=== PATIENT | female | born 1970 | race African-American/Black ===

== ENCOUNTER 2016-12-13 18:17 | Emergency (ER) | payer OTHER ==
[2016-12-13 18:24] VITALS: TEMP 98; BMI 38.0
[2016-12-13 20:09] LABS: URINE APPEARANCE CLEAR; URINE BILIRUBIN NEGATIVE (NEGATIVE); URINE BLOOD NEGATIVE (NEGATIVE); URINE COLOR STRAW; URINE GLUCOSE (UA) NEGATIVE (NEGATIVE); URINE KETONE NEGATIVE (NEGATIVE); URINE NITRITE NEGATIVE (NEGATIVE); URINE PROTEIN NEGATIVE (NEGATIVE); URINE UROBILINOGEN NEGATIVE E.U./dl (0.2-1.0)
[2016-12-13 20:12] LABS: URINE LEUK ESTERASE TRACE (NEGATIVE)
[2016-12-13 20:14] LABS: URINE MUCUS RARE; URINE RBC 1 /hpf (0-3); URINE WBC 4 /hpf (3-5)
[2016-12-13 20:25] LABS: BASOPHIL 0.7 % (0-2.0); EOSINOPHIL 3.1 % (0-4.5); MCH 23.3 pg (25.7-33.7); MCHC 32.5 g/dl (32.0-36.0); MEAN CELL VOLUME 71.7 fl (80-96); MEAN PLT VOLUME 7.4 fl (7.5-11.1); NEUTROPHILS 65.4 % (42.8-82.8); PLATELET COUNT 337 K/MM3 (134-434); RDW 16.5 % (11.6-15.6); WHITE BLOOD COUNT 8.2 K/mm3 (4.0-10.0)
[2016-12-13 20:41] LABS: INR 1.02 (0.82-1.09); PROTHROMBIN TIME (PATIENT) 11.2 SEC (9.98-11.88)
[2016-12-13 20:57] LABS: ALBUMIN 3.7 g/dl (3.4-5.0); ANION GAP 9 (8-16); BILIRUBIN,TOTAL 0.3 mg/dL (0.2-1.0); CALCIUM 8.7 mg/dL (8.5-10.1); CO2 25 mmol/L (21-32); CREATININE 0.9 mg/dL (0.55-1.02); GLUCOSE,RANDOM 77 mg/dL (74-106); SGOT/AST 13 U/L (15-37); SGPT/ALT 19 U/L (12-78); TOT PROT 6.9 g/dl (6.4-8.2)
[2016-12-13 20:59] LABS: ALK PHOS 75 U/L (45-117); TROPONIN I < 0.02 ng/ml (0.00-0.05)
--- NOTE | 2016-12-13 21:22 | PDOC ---
History of Present Illness - General History Source: Patient Exam Limitations: No Limitations - History of Present Illness Initial Comments: 12/13/16 21:35 The patient is a 46 year old female with a significant past medical history of hypertension, presenting to the Emergency Department with palpitations. She describes a fluttering feeling in her heart that feels like an extended heartbeat. She reports that this sensation has been intermittent over the past few weeks, but has recently become more consistent. She also reports minimal chest tightness or discomfort, but denies chest pain. She denies any alleviating or exacerbating factors. The patient denies shortness of breath, or diaphoresis. Patient denies fever, chills, and cough. Patient denies nausea, vomiting, and diarrhea. Patient denies back pain, or neck pain. Patient denies recent change in diet or lifestyle. Familial Hx: Mother CHF, diabetes in family PCP: Dr. Latosha Palacios <Prerna Lott - Last Filed: 12/13/16 22:02> <Gisell Waite - Last Filed: 12/14/16 20:15> - General Chief Complaint: Palpitations Stated Complaint: PALPITATIONS Time Seen by Provider: 12/13/16 19:49 Past History <Prerna Lott - Last Filed: 12/13/16 22:02> - Past Medical History HTN: Yes Suicide Attempt (Hx): No - Immunization History Immunization Up to Date: No - Psycho/Social/Smoking Cessation Hx Anxiety: No Suicidal Ideation: No Smoking History: Never smoked Have you smoked in the past 12 months: No Information on smoking cessation initiated: No Hx Alcohol Use: No Drug/Substance Use Hx: No Substance Use Type: None <Gisell Waite - Last Filed: 12/14/16 20:15> - Past Medical History Allergies/Adverse Reactions: Allergies Allergy/AdvReac Type Severity Reaction Status Date / Time No Known Allergies Allergy Verified 05/08/15 20:33 Home Medications: Ambulatory Orders Amlodipine Besylate [Norvasc -] 10 mg PO DAILY 05/08/15 Review of Systems - Review of Systems Able to Perform ROS?: Yes Comments:: 12/13/16 21:36 GENERAL/CONSTITUTIONAL: No fever or chills. No weakness. HEAD, EYES, EARS, NOSE AND THROAT: No change in vision. No ear pain or discharge. No sore throat. CARDIOVASCULAR: + palpitations, + chest tightness and discomfort. No chest pain or shortness of breath. RESPIRATORY: No cough, wheezing, or hemoptysis. GASTROINTESTINAL: No nausea, vomiting, diarrhea or constipation. GENITOURINARY: No dysuria, frequency, or change in urination. MUSCULOSKELETAL: No joint or muscle swelling or pain. No neck or back pain. SKIN: No rash NEUROLOGIC: No headache, vertigo, loss of consciousness, or change in strength/ sensation. ENDOCRINE: No increased thirst. No abnormal weight change. HEMATOLOGIC/LYMPHATIC: No anemia, easy bleeding, or history of blood clots. ALLERGIC/IMMUNOLOGIC: No hives or skin allergy. <Prerna Lott - Last Filed: 12/13/16 22:02> *Physical Exam - Vital Signs Last Vital Signs Temp Pulse Resp BP Pulse Ox 98.0 F 99 H 18 150/90 100 12/13/16 18:20 12/13/16 18:20 12/13/16 18:20 12/13/16 18:20 12/13/16 18:20 - Physical Exam Comments: 12/13/16 21:36 GENERAL: Awake, alert, and fully oriented, in no acute distress HEAD: No signs of trauma EYES: PERRLA, EOMI, sclera anicteric, conjunctiva clear ENT: Auricles normal inspection, hearing grossly normal, nares patent, oropharynx clear without exudates. Moist mucosa NECK: Normal ROM, supple, no lymphadenopathy, JVD, or masses LUNGS: Breath sounds equal, clear to auscultation bilaterally. No wheezes, and no crackles HEART: Occasional irregularly conducted beats heard. Regular rate no rubs or gallops ABDOMEN: Soft, nontender, normoactive bowel sounds. No guarding, no rebound. No masses EXTREMITIES: Normal range of motion, no edema. No clubbing or cyanosis. No cords, erythema, or tenderness NEUROLOGICAL: Cranial nerves II through XII grossly intact. Normal speech, normal gait SKIN: Warm, Dry, normal turgor, no rashes or lesions noted. <Prerna Lott - Last Filed: 12/13/16 22:02> - Vital Signs Last Vital Signs Temp Pulse Resp BP Pulse Ox 98.0 F 99 H 18 150/90 100 12/13/16 18:20 12/13/16 18:20 12/13/16 18:20 12/13/16 18:20 12/13/16 18:20 <Gisell Waite - Last Filed: 12/14/16 20:15> ED Treatment Course - LABORATORY CBC & Chemistry Diagram: 12/13/16 20:15 12/13/16 20:15 - ADDITIONAL ORDERS Additional order review: Laboratory Results 12/13/16 12/13/16 12/13/16 20:15 20:15 20:00 INR 1.02 Sodium 139 Potassium 3.7 Chloride 105 Carbon Dioxide 25 Anion Gap 9 BUN 11 Creatinine 0.9 Creat Clearance w eGFR > 60 Random Glucose 77 Calcium 8.7 Total Bilirubin 0.3 AST 13 L ALT 19 Alkaline Phosphatase 75 Creatine Kinase 149 Troponin I < 0.02 Total Protein 6.9 Albumin 3.7 Urine Color Straw Urine Appearance Clear Urine pH 6.0 Ur Specific [place] 1.013 Urine Protein Negative Urine Glucose (UA) Negative Urine Ketones Negative Urine Blood Negative Urine Nitrite Negative Urine Bilirubin Negative Urine Urobilinogen Negative Ur Leukocyte Esterase Trace H Urine RBC 1 Urine WBC 4 Ur Epithelial Cells Rare Urine Mucus Rare Urine HCG, Qual Negative 12/13/16 20:15 RBC 4.39 MCV 71.7 L MCHC 32.5 RDW 16.5 H MPV 7.4 L Neutrophils % 65.4 Lymphocytes % 22.4 D Monocytes % 8.4 Eosinophils % 3.1 Basophils % 0.7 <Prerna Lott - Last Filed: 12/13/16 22:02> - LABORATORY CBC & Chemistry Diagram: 12/13/16 20:15 12/13/16 20:15 - ADDITIONAL ORDERS Additional order review: Laboratory Results 12/13/16 12/13/16 12/13/16 20:15 20:15 20:00 INR 1.02 Sodium 139 Potassium 3.7 Chloride 105 Carbon Dioxide 25 Anion Gap 9 BUN 11 Creatinine 0.9 Creat Clearance w eGFR > 60 Random Glucose 77 Calcium 8.7 Total Bilirubin 0.3 AST 13 L ALT 19 Alkaline Phosphatase 75 Creatine Kinase 149 Troponin I < 0.02 Total Protein 6.9 Albumin 3.7 Urine Color Straw Urine Appearance Clear Urine pH 6.0 Ur Specific [place] 1.013 Urine Protein Negative Urine Glucose (UA) Negative Urine Ketones Negative Urine Blood Negative Urine Nitrite Negative Urine Bilirubin Negative Urine Urobilinogen Negative Ur Leukocyte Esterase Trace H Urine RBC 1 Urine WBC 4 Ur Epithelial Cells Rare Urine Mucus Rare Urine HCG, Qual Negative 12/13/16 20:15 RBC 4.39 MCV 71.7 L MCHC 32.5 RDW 16.5 H MPV 7.4 L Neutrophils % 65.4 Lymphocytes % 22.4 D Monocytes % 8.4 Eosinophils % 3.1 Basophils % 0.7 - RADIOLOGY Radiology Studies Ordered: Category Date Time Status CHEST PA & LAT [RAD] Stat Radiology 12/13/16 20:14 Taken <Gisell Waite - Last Filed: 12/14/16 20:15> Medical Decision Making - Medical Decision Making 12/13/16 22:02 Dr. Latosha Tate was called at her office. Dr. Bartlett was the covering physician and spoke to Dr. Waite about the patient's care at 8:25. <Prerna Lott - Last Filed: 12/13/16 22:02> - Medical Decision Making 12/14/16 20:12 Pt comes with feeling of palpitations. She has premature atrial contractions with abberrancy on EKG. SHe has no chest pain and no SOB; labs are normal. I christine hear the abberrant beats on exam. Pt will follow with her pMD and with cardiology for holter monitoring and with a specialist for possible ablation of the troublesome pathway resulting in the errant beats. Pt understands her diagnosis and she knows to follow with her PMD on Thursday when the office opens after . She knows to return to ER for worsening symptoms <Gisell Waite - Last Filed: 12/14/16 20:15> *DC/Admit/Observation/Transfer - Attestations Scribe Attestion: 12/13/16 21:37 Documentation prepared by Prerna Lott, acting as senior medical technologist for Gisell Waite MD. <Prerna Lott - Last Filed: 12/13/16 22:02> - Discharge Dispostion Admit: No <Gisell Waite - Last Filed: 12/14/16 20:15> Diagnosis at time of Disposition: Palpitations - Discharge Dispostion Disposition: HOME Condition at time of disposition: Stable - Referrals Referrals: Latosha Dykes MD [Primary Care Provider] - - Patient Instructions Printed Discharge Instructions: DI for Arrhythmias, DI for Palpitations Additional Instructions: CALL YOUR DOCTORS OFFICE FOR AN APPOINTMENT ON
[2016-12-13 22:12] VITALS: BP 115/76; PULSE 73
--- NOTE | 2016-12-15 16:21 | EKG ---
Test Reason : Blood Pressure : / mmHG Vent. Rate : 096 BPM Atrial Rate : 096 BPM P-R Int : 180 ms QRS Dur : 074 ms QT Int : 344 ms P-R-T Axes : 042 -14 -12 degrees QTc Int : 434 ms SINUS RHYTHM WITH PREMATURE VENTRICULAR COMPLEXES WITH ABERRANT CONDUCTION POSSIBLE ANTERIOR INFARCT , AGE UNDETERMINED ABNORMAL ECG WHEN COMPARED WITH ECG OF 08-MAY-2015 20:59, ABERRANT CONDUCTION IS NOW PRESENT VENT. RATE HAS INCREASED Confirmed by DARYL REZA MD ([id number]) on 12/15/2016 4:21:45 PM Referred By: Confirmed By:DARYL REZA MD
== END 2016-12-13 22:11 | disposition home or self-care (01) ==
LOC: JER 18:17
DX: R00.2 Palpitations (principal); I10 Essential (primary) hypertension
CPT/HCPCS: 36415; 71020-TC; 80053; 81003; 81015; 82550; 84484; 84703; 85025; 85610; 93005; 93010; 99282-25

== ENCOUNTER 2017-12-15 17:53 | Emergency (ER) | payer OTHER ==
--- NOTE | 2017-12-15 18:01 | PDOC ---
Rapid Medical Evaluation Time Seen by Provider: 12/15/17 17:57 Medical Evaluation: Allergies Allergy/AdvReac Type Severity Reaction Status Date / Time No Known Allergies Allergy Verified 05/08/15 20:33 12/15/17 17:58 I have performed a brief in-person evaluation of this patient. The patient presents with a chief complaint of: cough and nasal congestion x3 weeks Pertinent physical exam findings: VSS, Lungs CTAB I have ordered the following: UPT, CXR The patient will proceed to the ED for further evaluation. Discharge Disposition - Diagnosis Cough - Referrals - Patient Instructions - Post Discharge Activity
[2017-12-15 18:05] VITALS: PULSE 96; TEMP 98.1; BMI 38.0
--- NOTE | 2017-12-15 19:33 | PDOC ---
History of Present Illness - General Chief Complaint: Cold Symptoms Stated Complaint: CONGESTION Time Seen by Provider: 12/15/17 17:57 History Source: Patient Exam Limitations: No Limitations - History of Present Illness Initial Comments: 12/15/17 19:28 Patient came for evaluation of persistent postnasal drainage and mucus production. States feels choking sensation at night and having difficulty sleeping due to same. Denies fever, denied earache or sore throat pain. Denies cough although last week had all of those symptoms has been using over-the- counter preparations including multiple decongestants which may be related to her hypertension noted this emergency department visit. A purulent drainage from her nose, no phlegm production Timing/Duration: reports: getting worse, intermittent Severity: reports: mild, moderate Associated Symptoms: reports: nasal congestion. denies: cough, fever/chills Past History - Travel Traveled outside of the country in the last 30 days: No Close contact w/someone who was outside of country & ill: No - Past Medical History Allergies/Adverse Reactions: Allergies Allergy/AdvReac Type Severity Reaction Status Date / Time No Known Allergies Allergy Verified 12/15/17 18:00 Home Medications: Ambulatory Orders Amlodipine Besylate [Norvasc -] 10 mg PO DAILY 05/08/15 Fluticasone Prop 0.05% Nasal [Flonase -] 1 - 2 spray NS BID #1 spray.pump HTN: Yes - Immunization History Immunization Up to Date: No - Suicide/Smoking/Psychosocial Hx Smoking History: Never smoked Have you smoked in the past 12 months: No Hx Alcohol Use: No Drug/Substance Use Hx: No Substance Use Type: None Respiratory Specific PMHX - Complaint Specific PMHX Bronchitis: No Pneumonia: No Review of Systems - Review of Systems Able to Perform ROS?: Yes Is the patient limited Maori proficient: Yes Constitutional: Yes: Symptoms Reported, See HPI, Malaise. No: Fever HEENTM: Yes: See HPI, Nose Congestion. No: Symptoms Reported Respiratory: Yes: See HPI, Cough. No: Wheezing Integumentary: Yes: See HPI. No: Symptoms Reported (posterior sinus drainage) All Other Systems: Reviewed and Negative *Physical Exam - Vital Signs Last Vital Signs Temp Pulse Resp BP Pulse Ox 98.1 F 96 H 20 178/102 98 12/15/17 18:00 12/15/17 18:00 02/20/18 18:00 12/15/17 18:00 12/15/17 18:00 - Physical Exam General Appearance: Yes: Nourished, Appropriately Dressed. No: Apparent Distress HEENT: positive: EOMI, MARIPOSA, Normal ENT Inspection, TMs Normal (GEN started but landmarks easily visualized), Pharynx Normal, Nasal Congestion. negative: Pharyngeal Erythema, Tonsillar Exudate, Tonsillar Erythema Neck: positive: Supple. negative: Tender, Lymphadenopathy (R), Lymphadenopathy (L) Respiratory/Chest: positive: Lungs Clear, Normal Breath Sounds. negative: Rhonchi, Wheezing Gastrointestinal/Abdominal: positive: Soft Musculoskeletal: negative: Normal Inspection Extremity: positive: Normal Inspection, Normal Range of Motion Integumentary: positive: Normal Color, Dry, Warm Neurologic: positive: clinical business analyst II-XII NML intact, Fully Oriented, Alert, Normal Mood/ Affect, Normal Response, Motor Strength 5/5 Progress Note - Progress Note Progress Note: Chronic postnasal drainage status post URI. We'll treat with nasal steroids. BP 154/95 *DC/Admit/Observation/Transfer Diagnosis at time of Disposition: Post-nasal drainage - Discharge Dispostion Disposition: HOME Condition at time of disposition: Stable Admit: No - Prescriptions Prescriptions: Fluticasone Prop 0.05% Nasal [Flonase -] 1 - 2 spray NS BID #1 spray.pump - Referrals Referrals: Buck Jordan MD [Staff Physician] - - Patient Instructions Printed Discharge Instructions: DI for Allergic Rhinitis Additional Instructions: Rest, drink lots of fluids: Teas, water, soups Saltwater gargles. Consider humidifier in room at night Steamy showers/seem to face break up mucus Avoid contact with allergens, exposure to pollens, close windows on a windy day Lots of handwashing and good hygiene Continue [id number] medications for symptomatic relief- may use allergic eyedrops for itching I Continue antihistamines daily until pollen season is over; Zyrtec, Claritin, Alana during the daytime and Benadryl at nighttime as will make sleepy Tylenol or Motrin for fever and pain Flonase 1 spray to each nostril twice a day Followup with private physician in one to 2 days as needed Consider following up with an child attendant/drawing box tender for skin testing and possible allergy shots Return to emergency department for worsened symptoms, fevers, dehydration - Post Discharge Activity Forms/Work/School Notes: Back to Work
[2017-12-15 19:37] VITALS: BP 158/95
== END 2017-12-15 19:43 | disposition home or self-care (01) ==
LOC: JERFT 17:53
DX: R09.82 Postnasal drip (principal); I10 Essential (primary) hypertension
CPT/HCPCS: 84703; 99281-25

== ENCOUNTER 2019-01-25 20:45 | Emergency (ER) | payer OTHER ==
[2019-01-25 20:58] VITALS: TEMP 98.4; BMI 38.7
--- NOTE | 2019-01-25 21:03 | PDOC ---
Rapid Medical Evaluation Chief Complaint: Shortness of Breath Time Seen by Provider: 01/25/19 20:55 Medical Evaluation: Allergies Allergy/AdvReac Type Severity Reaction Status Date / Time No Known Allergies Allergy Verified 01/25/19 20:57 Vital Signs Temp Pulse Resp BP Pulse Ox 98.4 F 85 17 167/99 100 01/25/19 20:54 01/25/19 20:54 01/25/19 20:54 01/25/19 20:54 01/25/19 20:54 01/25/19 21:01 The patient presents with a chief complaint of: rt scapular/chest pain w/ intermittent SOB, sent over from urgent care secondary to elevated d- dimer I have performed a brief in-person evaluation of this patient; Pertinent physical exam findings: vss I have ordered the following: PE w/u, spoke to Dr. Jauregui and confirmed reference range 0-399. d-dimer 450 The patient will proceed to the ED for further evaluation. Discharge Disposition - Diagnosis D-dimer, elevated - Referrals - Patient Instructions - Post Discharge Activity
[2019-01-25 21:39] LABS: ALK PHOS 69 U/L (45-117); ANION GAP 6 MMOL/L (8-16); BILIRUBIN,TOTAL 0.2 mg/dL (0.2-1); BLOOD UREA NITROGEN 13 mg/dL (7-18); CALCIUM 9.1 mg/dL (8.5-10.1); CHLORIDE 106 mmol/L (98-107); CO2 27 mmol/L (21-32); GLUCOSE,RANDOM 94 mg/dL (74-106); LIPASE 276 U/L (73-393); POTASSIUM 3.8 mmol/L (3.5-5.1); SGOT/AST 16 U/L (15-37); SGPT/ALT 17 U/L (13-61); SODIUM 139 mmol/L (136-145); TOT PROT 7.2 g/dl (6.4-8.2)
[2019-01-25 21:52] LABS: EPI CELLS 2.8 /HPF (0-5); PH,URINE 7.5 (5.0-8.0); URINE APPEARANCE CLEAR; URINE BACTERIA 37.5 /hpf (NEGATIVE); URINE BILIRUBIN NEGATIVE (NEGATIVE); URINE CASTS 1 /hpf (0-8); URINE COLOR YELLOW; URINE GLUCOSE (UA) NEGATIVE (NEGATIVE); URINE KETONE NEGATIVE (NEGATIVE); URINE LEUK ESTERASE NEGATIVE (NEGATIVE); URINE NITRITE NEGATIVE (NEGATIVE); URINE PROTEIN NEGATIVE (NEGATIVE); URINE RBC 1 /hpf (0-4); URINE UROBILINOGEN 0.2 mg/dL (0.2-1.0); URINE WBC 1 /hpf (0-5)
[2019-01-25 21:57] LABS: HCG,QUALITATIVE URINE Negative
[2019-01-25 22:44] LABS: BASO % 0.7 % (0-2.0); EOS % 2.6 % (0-4.5); HEMATOCRIT 32.5 % (32.4-45.2); HEMOGLOBIN 10.8 GM/dL (10.7-15.3); LYMPH % 17.6 % (8-40); MCHC 33.1 g/dl (32.0-36.0); MEAN CELL VOLUME 78.7 fl (80-96); MEAN PLT VOLUME 7.2 fl (7.5-11.1); MONO % 8.2 % (3.8-10.2); NEUT % 70.9 % (42.8-82.8); PLATELET COUNT 344 K/MM3 (134-434); RBC 4.13 M/mm3 (3.60-5.2); RDW 15.4 % (11.6-15.6); WHITE BLOOD COUNT 8.8 K/mm3 (4.0-10.0)
--- NOTE | 2019-01-25 22:55 | PDOC ---
History of Present Illness - General Chief Complaint: Shortness of Breath Stated Complaint: HERE FOR CAT SCAN Time Seen by Provider: 01/25/19 20:55 - History of Present Illness Initial Comments: 01/25/19 23:19 48F with pmf htn presents to the ed for right scapular back pain since this morning. She went to Urgent care who sandi her d-dimer which was borderline high. She was subsequently sent to ER for CTA despiute normal vitals. Pain was sudden onset. not worsening with inspiration. patient is no on contraceptives or hormones. No recent surgeries or travel. No immobilizations. Past History - Past Medical History Allergies/Adverse Reactions: Allergies Allergy/AdvReac Type Severity Reaction Status Date / Time No Known Allergies Allergy Verified 01/25/19 20:57 Home Medications: Ambulatory Orders Losartan Potassium [Cozaar -] 50 mg PO DAILY 05/28/18 COPD: No GI Disorders: Yes (GERD) HTN: Yes - Immunization History Immunization Up to Date: No - Suicide/Smoking/Psychosocial Hx Smoking History: Never smoked Have you smoked in the past 12 months: No Information on smoking cessation initiated: No Hx Alcohol Use: No Drug/Substance Use Hx: No Substance Use Type: None Review of Systems - Review of Systems Able to Perform ROS?: Yes Is the patient limited Irish proficient: No Constitutional: No: Symptoms Reported HEENTM: No: Symptoms Reported Respiratory: No: Symptoms reported Cardiac (ROS): No: Symptoms Reported ABD/GI: No: Symptoms Reported : No: Symptoms Reported Musculoskeletal: Yes: See HPI Integumentary: No: Symptoms Reported Neurological: No: Symptoms reported All Other Systems: Reviewed and Negative *Physical Exam - Vital Signs Last Vital Signs Temp Pulse Resp BP Pulse Ox 98.4 F 85 17 167/99 100 01/25/19 20:54 01/25/19 20:54 01/25/19 20:54 01/25/19 20:54 01/25/19 20:54 - Physical Exam General Appearance: Yes: Appropriately Dressed, Apparent Distress, Obese HEENT: positive: EOMI, MARIPOSA, Normal ENT Inspection Respiratory/Chest: positive: Lungs Clear, Normal Breath Sounds. negative: Chest Tender, Respiratory Distress Cardiovascular: positive: Regular Rhythm, Regular Rate, S1, S2 Gastrointestinal/Abdominal: positive: Normal Bowel Sounds, Soft. negative: Tender Integumentary: positive: Normal Color, Dry, Warm Neurologic: positive: Fully Oriented, Alert, Normal Mood/Affect, Normal Response , Motor Strength 02/27 ED Treatment Course - LABORATORY CBC & Chemistry Diagram: 01/25/19 22:33 01/25/19 21:09 - ADDITIONAL ORDERS Additional order review: Laboratory Results 01/25/19 01/25/19 01/25/19 22:33 21:11 21:09 Sodium 139 Potassium 3.8 Chloride 106 Carbon Dioxide 27 Anion Gap 6 L BUN 13 Creatinine 1.0 Creat Clearance w eGFR 59.18 Random Glucose 94 Calcium 9.1 Total Bilirubin 0.2 AST 16 ALT 17 Alkaline Phosphatase 69 Troponin I < 0.02 Total Protein 7.2 Albumin 4.0 Lipase 276 Urine Color Yellow Urine Appearance Clear Urine pH 7.5 D Ur Specific [place] 1.009 L Urine Protein Negative Urine Glucose (UA) Negative Urine Ketones Negative Urine Blood 1+ H Urine Nitrite Negative Urine Bilirubin Negative Urine Urobilinogen 0.2 Ur Leukocyte Esterase Negative Urine WBC (Auto) 1 Urine RBC (Auto) 1 Urine Casts (Auto) 1 U Epithel Cells (Auto) 2.8 Urine Bacteria (Auto) 37.5 Urine HCG, Qual Negative 01/25/19 22:33 RBC 4.13 MCV 78.7 L MCHC 33.1 RDW 15.4 MPV 7.2 L Neutrophils % 70.9 Lymphocytes % 17.6 D Monocytes % 8.2 Eosinophils % 2.6 Basophils % 0.7 Medical Decision Making - Medical Decision Making 01/25/19 23:25 Patient PERCS out. Wells score for PE is zero. She was sent to CTA directly from [facility]. CTA negative. Vitals within normal limits. EKG: Normal sinus. Troponin negative. Patient ok to be discharged. *DC/Admit/Observation/Transfer Diagnosis at time of Disposition: D-dimer, elevated, Atypical back pain - Discharge Dispostion Disposition: HOME Decision to Admit order: No - Referrals Referrals: Surya Lopez MD [Primary Care Provider] - - Patient Instructions Printed Discharge Instructions: DI for Atypical Chest Pain Additional Instructions: Come back to the emergency department for any new, worsening or concerning symptoms. - Post Discharge Activity
--- NOTE | 2019-01-25 23:13 | PDOC ---
Attending Attestation - HPI HPI: 01/25/19 23:15 The patient is a 48 year old female, with a significant past medical history of hypertension, who presents to the emergency department with, right scapular pain with intermittent chest pain. As per patient, she was evaluated at urgent care at which time she had an elevated d-dimer of 450, prompting her arrival. She denies recent fevers, chills, headache or dizziness. She denies recent nausea, vomit, diarrhea or constipation. She denies recent dysuria, frequency, urgency or hematuria. Allergies: NKDA Primary Care Physician: Dr. Lopez - Physicial Exam PE: 01/25/19 23:15 Agree with resident exam. <Mindy Lsasiter - Last Filed: 01/25/19 23:14> - Resident Resident Name: Rogelio Antunez - ED Attending Attestation I have performed the following: I have examined & evaluated the patient, The case was reviewed & discussed with the resident, I agree w/resident's findings & plan - Medical Decision Making 01/25/19 23:45 48-year-old female with right subscapular pain and associated dyspnea Workup here has been unremarkable including a negative CTA of the chest Patient's pain is completely reproducible on exam She will be discharged home with instructions for musculoskeletal pain and NSAID administration <Lesia Price - Last Filed: 01/25/19 23:48> Attestations - Attestations 01/25/19 23:15 Documentation prepared by Mindy Lassiter, acting as hospital medical biller for Lesia Price DO. <Mindy Lassiter - Last Filed: 01/25/19 23:14>
[2019-01-25 23:45] VITALS: BP 140/93; PULSE 76
--- NOTE | 2019-01-26 10:12 | EKG ---
Test Reason : Blood Pressure : / mmHG Vent. Rate : 077 BPM Atrial Rate : 077 BPM P-R Int : 190 ms QRS Dur : 088 ms QT Int : 370 ms P-R-T Axes : 037 001 010 degrees QTc Int : 418 ms NORMAL SINUS RHYTHM NORMAL ECG WHEN COMPARED WITH ECG OF 28-MAY-2018 03:17, NONSPECIFIC T WAVE ABNORMALITY NO LONGER EVIDENT IN ANTERIOR LEADS Confirmed by STEVEN PFEIFFER, IGGY ([id number]) on 01/26/2019 10:12:18 AM Referred By: Confirmed By:IGGY HARRIS MD
== END 2019-01-25 23:49 | disposition home or self-care (01) ==
LOC: JER 20:45
DX: M54.9 Dorsalgia, unspecified (principal); I10 Essential (primary) hypertension; K21.9 Gastro-esophageal reflux disease without esophagitis
CPT/HCPCS: 36415; 71275-TC; 80053; 81003; 83690; 84484; 84703; 85025; 93005; 93010; 99283-25

== ENCOUNTER 2019-02-10 01:19 | Emergency (ER) | payer OTHER ==
[2019-02-10 01:49] VITALS: BMI 38.5
--- NOTE | 2019-02-10 02:02 | PDOC ---
History of Present Illness <Daniela Nguyen - Last Filed: 02/10/19 02:15> - General History Source: Patient Exam Limitations: No Limitations - History of Present Illness Initial Comments: 02/10/19 01:56 48 year old female with PMH HTN on Losartan, GERD presented to ED for neck swelling x3 days. She stated she feels the sensation that there is something in the back of her throat after she swallows. She stated tonight she felt the swelling increased to a point that she could not catch air, which prompted her to come to the Emergency Department. She denied fever, chills, runny nose, sore throat, nausea, vomiting, diarrhea, chest pain. She stated she was diagnosed with GERD x3 weeks ago, denied scope. Allergies: NKDA <Edilson,Vanessa - Last Filed: 02/10/19 19:19> - General Chief Complaint: Pain, Acute Stated Complaint: SWELLING,NECK Time Seen by Provider: 02/10/19 01:37 Past History <Daniela Nguyen - Last Filed: 02/10/19 02:15> - Past Medical History COPD: No GI Disorders: Yes (GERD) HTN: Yes - Immunization History Immunization Up to Date: No - Suicide/Smoking/Psychosocial Hx Smoking History: Never smoked Have you smoked in the past 12 months: No Information on smoking cessation initiated: No Hx Alcohol Use: No Drug/Substance Use Hx: No Substance Use Type: None <EdilsonAlvaro jaureguia - Last Filed: 02/10/19 19:19> - Past Medical History Allergies/Adverse Reactions: Allergies Allergy/AdvReac Type Severity Reaction Status Date / Time No Known Allergies Allergy Verified 02/10/19 01:47 Home Medications: Ambulatory Orders Losartan Potassium [Cozaar -] 100 mg PO DAILY 05/28/18 Famotidine [Pepcid -] 20 mg PO BID #14 tablet 02/10/19 Review of Systems - Review of Systems Able to Perform ROS?: Yes Comments:: 02/10/19 01:58 General: denied fever, chills, generalized weakness. HEENT: admitted to FB sensation in throat. denied sore throat, rhinorrhea, ear pain. Neck: admitted to swelling. Heart: denied chest pain, palpitations, syncope, diaphoresis. Respiratory: admitted to shortness of breath. denied cough, sputum production, hemoptysis. Abdomen: denied abdominal pain, nausea, vomiting, diarrhea, constipation, blood in stool. : denied dysuria, increased urinary frequency, hematuria, urinary incontinence , flank pain. Back: denied back pain. Musculoskeletal: denied joint pain, muscle pain, joint swelling. Neurological: denied headache, dizziness, numbness, tingling, weakness. Skin: denied rash, laceration, abrasion. <Vanessa Waggoner - Last Filed: 02/10/19 19:19> *Physical Exam - Vital Signs Last Vital Signs Temp Pulse Resp BP Pulse Ox 98.6 F 83 16 144/91 98 02/10/19 01:25 02/10/19 01:25 02/10/19 01:25 02/10/19 01:25 02/10/19 01:25 <Daniela Nguyen - Last Filed: 02/10/19 02:15> - Vital Signs Last Vital Signs Temp Pulse Resp BP Pulse Ox 98.6 F 83 16 144/91 98 02/10/19 01:25 02/10/19 01:25 02/10/19 01:25 02/10/19 01:25 02/10/19 01:25 - Physical Exam Comments: 02/10/19 01:59 Constitutional: Well-nourished, Well-developed, appearing stated age. HEENT: head is normocephalic, atraumatic. EOMI. PERRLA. no angioedema. Mallampati 4, only able to visualize the upper uvula, which did not appear swollen. Neck: supple. Full ROM. no swelling. Heart: regular rhythm. no murmurs, rubs or gallops. Lungs: clear to auscultation bilaterally. no crackles, rhonchi or wheezing. no stridor. speaking full sentences. no muffled voice. no tachypnea. Abdomen: soft, nontender. normal bowel sounds. no rebound, guarding, masses. Extremities: peripheral pulses intact. no lower extremity edema. Neurological: CN 2-12 grossly intact. moves all four extremities. Psych: awake, alert, oriented x3. follows commands. answers questions appropriately. <Vanessa Waggoner - Last Filed: 02/10/19 19:19> Medical Decision Making - Medical Decision Making 02/10/19 02:02 48 year old female with above PMH presented to ED for neck swelling. Initial Vital Signs Temp Pulse Resp BP Pulse Ox 98.6 F 83 16 144/91 98 02/10/19 01:25 02/10/19 01:25 02/10/19 01:25 02/10/19 01:25 02/10/19 01:25 Afebrile. No tachycardia. No tachypnea. Mild hypertension. No hypoxia on room air. Labs ordered: rapid strep Medications ordered: Zantac, Maalox, Viscous Lidocaine Imaging ordered: none 02/10/19 02:07 Rapid strep testing negative. 02/10/19 03:10 Pt reported improvement of symptoms. sleeping comfortably flat on the bed. Pt refused oral lidocaine. Pt discharged. No swelling noted to neck/throat/airway. Symptoms likely from GERD, improved with Zantac/Maalox treatment. Pt informed to follow up with PCP. Pt given GERD diet precautions. <Vanessa Waggoner - Last Filed: 02/10/19 19:19> *DC/Admit/Observation/Transfer - Discharge Dispostion Decision to Admit order: No <Daniela Nguyen - Last Filed: 02/10/19 02:15> - Discharge Dispostion Decision to Admit order: No <Vanessa Waggoner - Last Filed: 02/10/19 19:19> Diagnosis at time of Disposition: Sore throat, Globus sensation - Discharge Dispostion Disposition: HOME Condition at time of disposition: Improved - Prescriptions Prescriptions: Famotidine [Pepcid -] 20 mg PO BID #14 tablet - Referrals Referrals: Surya Lopez MD [Primary Care Provider] - - Patient Instructions Printed Discharge Instructions: Sore Throat, DI for Gastroesophageal Reflux Disease (GERD), GERD Diet Additional Instructions: You may also take pepcid daily and maalox or [place] three to four times a day with your meals for the heart burn symptoms Avoid spicy or fatty or chocolates or hot coffee or anything acidic. follow the diet provided, keep a food diary to keep track of potential triggers. Drink plenty of fluids, soups and broth. Important to stay hydrated. Avoid triggers that could precipitate the abdominal pain, nausea and vomiting. I have sent a prescription to your pharmacy for Pepcid. Take as advised on label. This could be reflux, gastritis or viral infection that should self resolve with time Your strep testing was negative. Follow up with a relocation services specialist and primary doctor if symptoms persist. - Post Discharge Activity Forms/Work/School Notes: Back to Work
[2019-02-10] MEDS ORDERED: LIDOCAINE VISCOUS 2% ORAL/TOP 20 ML UNIT-DOSE CUP MM ONE (02:14)
[2019-02-10] MEDS ORDERED: RANITIDINE HCL 150 MG TABLET (FP) PO ONE (02:14)
[2019-02-10] MEDS ORDERED: MAG HYDROX/AL HYDROX/SIMETH 30 ML UNIT-DOSE CUP PO ONE (02:14)
--- NOTE | 2019-02-10 02:15 | PDOC ---
Attending Attestation - Resident Resident Name: Vanessa Waggoner - ED Attending Attestation I have performed the following: I have examined & evaluated the patient, The case was reviewed & discussed with the resident, I agree w/resident's findings & plan - HPI HPI: 02/10/19 02:38 48 YOF with HTN, obesity and GERD presenting with globus sensation, sore throat x 3 days. recent URI sx/nasal congestion 1 week ago seen in urgent care 3 weeks ago, given carafate, omeprazole and pepcid - has been taking with some relief. admits to previously eating prior to bedtime, fatty foods and poor diet; has since changed, last meal at 6pm, sleeps with 1 pillow. occasionally with burning sensation, throat discomfort usually in the morning. has upcoming GI appt with Dr Wynn for endoscopy, but pt states she can't wait. tolerating secretions, no n/v/d, wong, dizziness, sob or cp. - Physicial Exam PE: 02/10/19 02:41 NAD, well appearing, PERRL, EOMI, MMM, nl conjunctiva, anicteric; normal phonation, no tonsillary or oropharyngeal erythema. no oral lesions. no trismus. tolerating secretions, neck supple. lungs clear, no respiratory distress. RRR, abdomen soft nontender, obese. ESTRADA x4. No peripheral edema. normal color for ethnicity, WWP. - Medical Decision Making 02/10/19 02:42 hpi as documented VS reviewed wnl ddx. globus sensation, GERD, reflux, pharyngitis, URI, post nasal drip no abdominal sx. no respiratory sx. doubt deep space or oropharyngeal infection , no systemic sx or infection or fever. airway intact, breathing well, no distress. rapid strep neg likely globus sensation vs GERD sx, with prior dietary exacerbants, eating prior to sleep and known GERD GI cocktail here, declined lidocaine orally. tolerating her secretions. GERD precautions, food diary. GI referral, has outpatient endoscopy in 1 month, which will eval for stricturing or esophageal abnoramlities. Pt to be discharged in stable condition. Patient and family made aware of impression and plan, return precautions discussed (including but not limited to worsening pain or symptoms), fevers, or signs of infection, chest pain, respiratory distress, inability to tolerate oral intake, dehydration, syncope, or neurologic changes). Follow up with PMD and/or specialist as recommended, follow up information provided, take medications as instructed for duration of time. continue with supportive care, avoid triggers and precipitants. All questions answered to patient's satisfaction and expressed understanding and comfort with this. Patient does not suffer from an acute life-threatening medical condition at this time she is safe for outpatient follow-up. 02/10/19 02:44
[2019-02-10] MEDS ORDERED: LIDOCAINE VISCOUS 2% ORAL/TOP 20 ML UNIT-DOSE CUP ONE (02:36)
[2019-02-10] MEDS ORDERED: RANITIDINE HCL 150 MG TABLET (FP) ONE (02:37)
[2019-02-10] MEDS ORDERED: MAG HYDROX/AL HYDROX/SIMETH 30 ML UNIT-DOSE CUP ONE (02:37)
[2019-02-10 03:25] VITALS: BP 112/86; PULSE 74; TEMP 98.2
== END 2019-02-10 03:19 | disposition home or self-care (01) ==
LOC: JER 01:19
DX: J02.9 Acute pharyngitis, unspecified (principal); F45.8 Other somatoform disorders
CPT/HCPCS: 87070; 87880; 99281-25

== ENCOUNTER 2019-03-03 19:08 | Observation (INO) | payer OTHER ==
--- NOTE | 2019-03-03 19:26 | PDOC ---
Rapid Medical Evaluation Chief Complaint: Shortness of Breath Time Seen by Provider: 03/03/19 19:24 Medical Evaluation: Allergies Allergy/AdvReac Type Severity Reaction Status Date / Time No Known Allergies Allergy Verified 02/10/19 01:47 03/03/19 19:24 I have performed a brief in-person evaluation of this patient. The patient presents with a chief complaint of: sent from urgent care for evaluation for PE s/p presenting with SOB since this afternoon and found to have elevated d-dimer. Patient was seen few weeks ago in this ED for SOB and found to have elev ated d-dimer and no PE was found on imaging Pertinent physical exam findings: a&O x 3 in NAD. lungs CTAB in no acute respiratory distress I have ordered the following: CBC, CMP, D-dimer The patient will proceed to the ED for further evaluation. 03/03/19 19:28 Discharge Disposition - Diagnosis SOB (shortness of breath) - Discharge Dispostion Condition at time of disposition: Stable - Referrals - Patient Instructions - Post Discharge Activity
[2019-03-03 19:28] VITALS: BMI 38.5
--- NOTE | 2019-03-03 19:55 | PDOC ---
Documentation entered by Liana Hammonds SCRIBE, acting as scribe for Gomez Blevins MD. Gomez Blevins MD: This documentation has been prepared by the Cassius osborne Adrianna, SCRIBE, under my direction and personally reviewed by me in its entirety. I confirm that the documentation accurately reflects all work, treatment, procedures, and medical decision making performed by me. Attending Attestation - Resident Resident Name: ShawnNataly - ED Attending Attestation I have performed the following: I have examined & evaluated the patient, The case was reviewed & discussed with the resident, I agree w/resident's findings & plan, Exceptions are as noted - HPI HPI: The patient is a 48 year old female, with a significant PMH of hypertension and poorly controlled GERD, who presents to the emergency department today from Urgent Care for elevated d-dimer and dyspnea. Patient notes she was cleaning earlier today, when she began to feel short of breath. She notes an exacerbation of her GERD symptoms, reporting feeling a lump in her throat/ throat swelling. Patient then went to , and was sent here for treatment of her elevated d-dimer (1200). She endorses history of similar symptoms one month ago, and workup was negative for PE. She denies lower extremity edema, but endorses posterior knee pain. No family history of cancer. The patient denies chest pain, headache and dizziness. Denies fever, chills, nausea, vomit, diarrhea and constipation. Denies dysuria, frequency, urgency and hematuria. Denies recent URI, congestion, or cough. Denies recent travel or history of DVT. Allergies: NKA Past surgical history: None reported Social history: No reported PCP: Dr. Surya Lopez - Physicial Exam PE: 03/03/19 22:36 Agree with exam as documented by resident - Medical Decision Making EXAM#: TYPE/EXAM: RESULT: [id number] CT/CHEST CTA Chest pain. Rule out PE IMPRESSION: Small filling defects/pulmonary emboli within the distal branches of the right lower lobe pulmonary artery and possible tiny emboli in distal branches of the left. A couple of tiny subpleural bulla in the right lower lobe , posteriorly. Reported By: Gilberto Lynch MD 03/03/19 23:32 03/03/19 22:36 Pt complaining of globus sensation and discrete episode of SOB this afternoon, was evaluated at a UC and found to have an elevated d-dimer Last month with similar presentation with d-dimer at UC of 400, CTA PE here in January was negative Lowest risk stratum per [facility], d-dimer from E positive here at 1380 pt w/o chf, no chest pain, ACS unlikely, consider GI mass causing globus sensation, consider venous malformation Patient is low risk for PE but will investigate cause of fibrin degradation F/u labs, including test F/u CTA PE Has GI follow up for endoscopy 03/04/19 00:40 CTA PE with multiple PE AC admit
[2019-03-03 21:22] LABS: BASO % 0.5 % (0-2.0); EOS % 3.1 % (0-4.5); HEMATOCRIT 35.3 % (32.4-45.2); HEMOGLOBIN 11.6 GM/dL (10.7-15.3); LYMPH % 14.1 % (8-40); MCH 25.7 pg (25.7-33.7); MCHC 32.8 g/dl (32.0-36.0); MEAN CELL VOLUME 78.4 fl (80-96); MEAN PLT VOLUME 7.7 fl (7.5-11.1); MONO % 5.5 % (3.8-10.2); NEUT % 76.8 % (42.8-82.8); PLATELET COUNT 367 K/MM3 (134-434); RDW 15.3 % (11.6-15.6); WHITE BLOOD COUNT 7.5 K/mm3 (4.0-10.0)
[2019-03-03 21:38] LABS: INR 0.96 (0.83-1.09); PROTHROMBIN TIME (PATIENT) 11.3 SEC (9.7-13.0)
[2019-03-03 21:41] LABS: ALBUMIN 3.9 g/dl (3.4-5.0); BILIRUBIN,TOTAL 0.3 mg/dL (0.2-1); CALCIUM 9.5 mg/dL (8.5-10.1); CREATININE 0.9 mg/dL (0.55-1.3); POTASSIUM 3.8 mmol/L (3.5-5.1); TOT PROT 6.9 g/dl (6.4-8.2)
--- NOTE | 2019-03-03 22:03 | PDOC ---
History of Present Illness - General Chief Complaint: Shortness of Breath Stated Complaint: CT SCAN/SENT BY PCP Time Seen by Provider: 03/03/19 19:24 - History of Present Illness Initial Comments: Lana Lamas is a 48yo woman with a PMH of HTN, difficult to control GERD who was sent to the ED from urgent care for SOB and elevated d-dimer. Ms Lamas reports that she has been having severe GERD symptoms recently including a sensation of something stuck in her throat, but she has not had any difficulty breathing, cough, or asthma. Today about 4pm she suddenly felt short of breath while folding laundry. She denies any pleuritic chest pain. She was concerned and went to urgent care, where it was found that her d-dimer was elevated to 1200. She had a previous episode a month ago, and her workup was negative for PE. She denies any recent travel, immobilization, recent surgery or fracture, personal history of cancer, history of blood clots or family h/o clotting disorder. Her difficulty breathing has since resolved. Past History - Past Medical History Allergies/Adverse Reactions: Allergies Allergy/AdvReac Type Severity Reaction Status Date / Time No Known Allergies Allergy Verified 02/10/19 01:47 Home Medications: Ambulatory Orders Losartan Potassium [Cozaar -] 100 mg PO DAILY 05/28/18 Famotidine [Pepcid -] 20 mg PO BID #14 tablet 02/10/19 COPD: No GI Disorders: Yes (GERD) HTN: Yes - Immunization History Td Vaccination: Yes TDAP Vaccination: Yes Immunization Up to Date: No - Suicide/Smoking/Psychosocial Hx Smoking History: Never smoked Have you smoked in the past 12 months: No Information on smoking cessation initiated: No Hx Alcohol Use: No Drug/Substance Use Hx: No Substance Use Type: None Review of Systems - Review of Systems Comments:: General: No fevers, no chills, no weight or appetite change, no malaise HEENT: No changes in vision, no changes in hearing, no congestion, no sore throat CV: No chest pain, no palpitations, no LE edema Pulm: See HPI GI: No nausea or vomiting, no change in bowel habits, no melena. +heartburn : No frequency, no urgency, no dysuria Musc: No back pain, no joint swelling, no recent injury Skin: No rash, no lesions, no erythema Endo: No excessive thirst, no heat/cold intolerance Heme: No unusual bruising or bleeding, no swollen glands Neuro: No syncope, no numbness/tingling, no focal weakness Vasc: No claudication Psych: No recent change in mood, no SI or HI *Physical Exam - Vital Signs Last Vital Signs Temp Pulse Resp BP Pulse Ox 97.9 F 88 20 153/100 98 03/03/19 19:25 03/03/19 19:25 03/03/19 19:25 03/03/19 19:25 03/03/19 19:25 - Physical Exam Comments: General: Comfortable, no acute distress HEENT: PERRL, EOMI, MMM, voice normal, normal neck ROM, no LAD Cards: RRR, no murmur appreciated Pulm: Comfortable on room air, clear to auscultation bilaterally Abd: Soft, nontender, nondistended Ext: Atraumatic. No LE edema. ROM intact. Vasc: Extremities WWP. Skin: Normal color, no rashes or lesions Neuro: A&Ox3, CN grossly intact, normal speech, motor/sensory grossly intact and symmetric Psych: Mood appropriate to situation ED Treatment Course - LABORATORY CBC & Chemistry Diagram: 03/03/19 20:56 03/03/19 20:56 - ADDITIONAL ORDERS Additional order review: Laboratory Results 03/03/19 20:56 PT with INR 11.30 INR 0.96 PTT (Actin FS) 28.0 03/03/19 20:56 RBC 4.50 MCV 78.4 L MCHC 32.8 RDW 15.3 MPV 7.7 Neutrophils % 76.8 Lymphocytes % 14.1 Monocytes % 5.5 Eosinophils % 3.1 Basophils % 0.5 - RADIOLOGY Radiology Studies Ordered: Category Date Time Status CHEST CTA [CT] Stat CT Scan 03/03/19 21:39 Ordered Medical Decision Making - Medical Decision Making 03/03/19 19:58 Lana Lamas is a 48yo woman with a PMH of HTN and persistent GERD symptoms who was sent from urgent care for PE workup due to SOB and elevated d- dimer. - Unclear history for PE w/ elevated d-dimer one month ago, current resolution of SOB. May be related to known reflux. - Will repeat d-dimer, CBC, chemistry, coags. If still elevated, will likely need CT-PE study to evaluate for thrombus as there is no other explanation for the elevation. - Discussed with Ms Lamas, who states that she feels more comfortable completing the CT. 03/03/19 22:06 - D-dimer 1380. Remainder of labs unremarkable. test negative - Maalox ordered for GERD symptoms per pt request - Will take to CT 03/03/19 23:45 - CT completed. Indicates multiple small emboli in the RLL and possible tiny emboli in the LLL - Discussed with Ms Lamas. Should be admitted for management, will need hypercoaguability workup. She agrees with this plan - Microblog sent to hospitalist for admission 03/04/19 00:48 - Seen by Dr Escobar. Will admit to Dr Jones's service. Discussed with Dr Blevins. Nataly Escobar PGY1 *DC/Admit/Observation/Transfer Diagnosis at time of Disposition: Pulmonary embolism - Discharge Dispostion Condition at time of disposition: Stable Decision to Admit order: Yes - Referrals - Patient Instructions - Post Discharge Activity
[2019-03-03] MEDS ORDERED: MAG HYDROX/AL HYDROX/SIMETH -MYLANTA- ORAL SUSPENSION PO ONE (22:04)
[2019-03-03] MEDS ORDERED: MAG HYDROX/AL HYDROX/SIMETH 30 ML UNIT-DOSE CUP ONE (22:05)
[2019-03-03] MEDS ORDERED: PANTOPRAZOLE 20 MG TABLET (FP) PO ONE (23:45)
--- NOTE | 2019-03-04 00:04 | PN ---
Teaching Attending Note Name of Resident: Amina Escobar ATTENDING PHYSICIAN STATEMENT I saw and evaluated the patient. I reviewed the resident's note and discussed the case with the resident. I agree with the resident's findings and plan as documented. SUBJECTIVE: Patient is a 48 year old woman with a PMH of hypertension and poorly controlled GERD, who presents to the ER from Urgent Care for dyspnea and elevated d-dimer. Patient notes she was cleaning earlier today, when she began to feel short of breath. She notes an exacerbation of her GERD symptoms, reporting feeling a lump in her throat/throat swelling. Patient then went to , and was sent here for treatment of her elevated d-dimer (1200). She had similar symptoms one month ago, and workup including CTA was negative for PE. She denies lower extremity edema, but has posterior knee pain. No family history of cancer, recent immobilization, surgery or VTE. She denies chest pain, headache, dizziness, fever, chills, nausea, vomit, diarrhea, constipation, dysuria, frequency, urgency or hematuria. Patient denies recent URI, congestion, or cough andhas not had any recent travel or history of VTE. OBJECTIVE: Alert Vital Signs Period Temp Pulse Resp BP Sys/Medel Pulse Ox Last 24 Hr 97.9 F 88 20 153/100 98 HEENT: No Jaundice, eye redness or discharge, PERRLA, EOMI. Normocephalic, atraumatic. External ears are normal and hearing is grossly intact. No nasal discharge. Neck: Supple, nontender. No palpable adenopathy; has thyromegaly. No JVD Chest: Good effort. Clear to auscultation and percussion. Heart: Regular. No S3, rub or murmur Abdomen: Not distended, soft, nontender and no HSM. No rebound or guarding. Normal bowel sounds. Ext: Peripheral pulses intact. No leg edema. Skin: Warm and dry. No petechiae, rash or ecchymosis. Neuro: Alert. Oriented x3. CN 2-12 grossly intact. Sensation grossly intact in all four extremities and DTR are symmetric. Psych: Appropriate mood and affect. Good insight. Home Medications Medication Instructions Recorded Losartan Potassium [Cozaar -] 100 mg PO DAILY 05/28/18 Famotidine [Pepcid -] 20 mg PO BID #14 tablet 02/10/19 Abnormal Lab Results 03/03/19 03/03/19 03/03/19 20:56 20:56 20:56 MCV 78.4 L D-Dimer 1380 H Anion Gap 7 L AST 14 L ASSESSMENT AND PLAN: 1. Multiple small pulmonary embolisms - CTA shows multiple pulmonary embolisms in the RLL, LLL and RUL. Will commence workup to search for any modifiable risk factor for VTE. Get TSH, ECHO and consult Endocrine for thyromegaly. Being stated on Eliquis 10 mg po bid. Consult Pulmonary. 2. Obesity Counseled on the risks associated with obesity. Will provide patient all the necessary assistance, counseling and positive reinforcement to facilitate weight loss. Consult box cutter. 3. Uncontrolled Hypertension - Restart outpatient antihypertensive drugs and revise regimen to ensure smooth [id number] good BP control - Losartan 100mg po q am and amlodipine 5 mg q pm. Would benefit from subsequent outpatient addition of HCTZ 12.5 mg qd. Nonpharmacologic measures to control hypertension like weight loss, salt restriction and exercise discussed. 4. DVT prophylaxis - On Eliquis for PE 5. Advance directives - Full code
[2019-03-04] MEDS ORDERED: PANTOPRAZOLE 40 MG TABLET (FP) ONE (00:24)
--- NOTE | 2019-03-04 00:42 | HP ---
CHIEF COMPLAINT: SOB PCP: Dr. Roberts HISTORY OF PRESENT ILLNESS: Patient is a 48 y/o female with a history of HTN and GERD who presents for shortness of breath. She reports the shortness of breath began today, she was able to continue her daily activies but just noticed she was out of breath. She first went to urgent care and was told her ddimer was elevated and to go to the hospital. She had a similar episode one month ago, her ddimer was in the 400's and she was diagnosed with a superficial phlebitis. She denies any family history of hypercoagulabitlity and no family history of cancer. She gets her yearly mammogram and was told they were normal. She is scheduled for her first colonoscopy in a few months. She was once told her thyroid is enlarged, but testing all showed it was normal. She denies hot or cold intolerance, weight gain, constipation, or hair loss. Patient has recently been complaining of feeling like food is stuck and her GERD is hard to manage with medication. Patient currently denies shortness of breath, chest pain, change in bowel movements, fevers, chills, or recent illness. ER course was notable for: (1) (2) (3) Recent Travel: PAST MEDICAL HISTORY: HTN and GERD PAST SURGICAL HISTORY: Social History: Smoking: denies, Alcohol: denies Drugs: denies Family History: Allergies No Known Allergies Allergy (Verified 02/10/19 01:47) HOME MEDICATIONS: Home Medications Medication Instructions Recorded Losartan Potassium [Cozaar -] 100 mg PO DAILY 05/28/18 Famotidine [Pepcid -] 20 mg PO BID #14 tablet 02/10/19 REVIEW OF SYSTEMS positive: SOB denies: chills, nausea, vomiting, chest pain, cough, heat intolerance, weight gain, constipation, hair loss PHYSICAL EXAMINATION Vital Signs - 24 hr 03/03/19 19:25 Temperature 97.9 F Pulse Rate 88 Respiratory 20 Rate Blood Pressure 153/100 O2 Sat by Pulse 98 Oximetry (%) GENERAL: Awake, alert, and fully oriented, in no acute distress. HEAD: Normal with no signs of trauma. EYES: Pupils equal, round and reactive to light, extraocular movements intact EARS, NOSE, THROAT: Moist mucous membranes. NECK: mildly large thyroid, no nodules or lumps felt LUNGS: Breath sounds equal, clear to auscultation bilaterally. No wheezes, and no crackles. No accessory muscle use. HEART: Regular rate and rhythm, normal S1 and S2 without murmur, rub or gallop. ABDOMEN: Soft, nontender, not distended, normoactive bowel sounds, no guarding, no rebound, no masses. MUSCULOSKELETAL: No CVA tenderness. LOWER EXTREMITIES: 2+ pulses, warm, well-perfused. No calf tenderness. No peripheral edema. NEUROLOGICAL: Cranial nerves II-XII intact. PSYCHIATRIC: Cooperative. Good eye contact. Appropriate mood and affect. SKIN: Warm, dry, normal turgor, no rashes or lesions noted, normal capillary refill. CBCD WBC 7.5 K/mm3 (4.0-10.0) 03/03/19 20:56 RBC 4.50 M/mm3 (3.60-5.2) 03/03/19 20:56 Hgb 11.6 GM/dL (10.7-15.3) 03/03/19 20:56 Hct 35.3 % (32.4-45.2) 03/03/19 20:56 MCV 78.4 fl (80-96) L 03/03/19 20:56 MCHC 32.8 g/dl (32.0-36.0) 03/03/19 20:56 RDW 15.3 % (11.6-15.6) 03/03/19 20:56 Plt Count 367 K/MM3 (134-434) 03/03/19 20:56 MPV 7.7 fl (7.5-11.1) 03/03/19 20:56 CMP Sodium 139 mmol/L (136-145) 03/03/19 20:56 Potassium 3.8 mmol/L (3.5-5.1) 03/03/19 20:56 Chloride 107 mmol/L (98-107) 03/03/19 20:56 Carbon Dioxide 25 mmol/L (21-32) 03/03/19 20:56 Anion Gap 7 MMOL/L (8-16) L 03/03/19 20:56 BUN 15 mg/dL (7-18) 03/03/19 20:56 Creatinine 0.9 mg/dL (0.55-1.3) 03/03/19 20:56 Calcium 9.5 mg/dL (8.5-10.1) 03/03/19 20:56 Total Bilirubin 0.3 mg/dL (0.2-1) 03/03/19 20:56 AST 14 U/L (15-37) L 03/03/19 20:56 ALT 17 U/L (13-61) 03/03/19 20:56 Alkaline Phosphatase 81 U/L (45-117) 03/03/19 20:56 Total Protein 6.9 g/dl (6.4-8.2) 03/03/19 20:56 Albumin 3.9 g/dl (3.4-5.0) 03/03/19 20:56 ASSESSMENT/PLAN: Patient is a 48 y/o female with a history of HTN and GERD who presents for shortness of breath 2/2 to B/L small pulmonary emboli. #Pulmonary emboli - CT: multiple small emboli on RLL and tiny in LLL, ddimer 1380 - no hx of hypercoaguability, cannot r/o malignancy thyroid vs GI? no clinical symptoms for either present - f/u hypercoaguability workup, consult Dr. Dominguez - stable on room air, O2 98%, maintain above 90% - f/u echo to r/o heart strain, f/u ekg to r/o heart strain, low suspicion, vitals stable - eliquis 10 BID for one week and then to 5mg BID for treatment #HTN - continue losartan 100 - can add a second agent if indicated #GERD - continue omeprazole daily #mildly large thyroid - THS 1.19, unlikely thyroid origin for hypercoaguable state - consider consulting endocrine #DVT ppx - patient on elliquis FEN - regular diet Dispo: monitor on tele obs Visit type - Emergency Visit Emergency Visit: Yes ED Registration Date: 03/03/19 Care time: The patient presented to the Emergency Department on the above date and was hospitalized for further evaluation of their emergent condition. - New Patient This patient is new to me today: Yes Date on this admission: 03/04/19 - Critical Care Critical Care patient: No
[2019-03-04] MEDS ORDERED: APIXABAN 5 MG TABLET PO SCH ×2 (01:00→10:00)
[2019-03-04] MEDS ORDERED: APIXABAN 5 MG TABLET PO ONE (02:00)
[2019-03-04 06:09] LABS: BASO % 0.5 % (0-2.0); HEMATOCRIT 34.8 % (32.4-45.2); HEMOGLOBIN 11.4 GM/dL (10.7-15.3); LYMPH % 18.9 % (8-40); MCH 25.6 pg (25.7-33.7); MCHC 32.7 g/dl (32.0-36.0); MEAN CELL VOLUME 78.1 fl (80-96); MEAN PLT VOLUME 7.6 fl (7.5-11.1); MONO % 7.2 % (3.8-10.2); NEUT % 69.4 % (42.8-82.8); PLATELET COUNT 384 K/MM3 (134-434); RBC 4.45 M/mm3 (3.60-5.2); RDW 15.4 % (11.6-15.6); WHITE BLOOD COUNT 7.6 K/mm3 (4.0-10.0)
[2019-03-04 06:23] LABS: INR 1.1 (0.83-1.09)
[2019-03-04 06:26] LABS: ACTIVATED PTT 34.9 SECONDS (25.2-36.5)
[2019-03-04 06:39] LABS: ALBUMIN 3.8 g/dl (3.4-5.0); BILIRUBIN,TOTAL 0.5 mg/dL (0.2-1); CALCIUM 9.2 mg/dL (8.5-10.1); POTASSIUM 4.1 mmol/L (3.5-5.1)
[2019-03-04] MEDS ORDERED: RANITIDINE HCL 150 MG TABLET (FP) PO ONE (09:00)
[2019-03-04] MEDS ORDERED: LOSARTAN POTASSIUM 50 MG TABLET (FP) PO SCH (10:00)
[2019-03-04] MEDS ORDERED: PANTOPRAZOLE 20 MG TABLET (FP) PO SCH (10:00)
--- NOTE | 2019-03-04 11:09 | ECHO ---
Name: BRONWYN PHILIP Exam:Adult Echocardiogram Study Date: 03/04/2019 09:29 AM Age: 48 yrs Reason For Study: PE Height: 68 in Weight: 253 lb BSA: 2.3 m2 MMode/2D Measurements & Calculations IVSd: 1.5 cm Ao root diam: 3.1 cm LVIDd: 3.8 cm LA dimension: 3.4 cm LVPWd: 1.5 cm ACS: 1.7 cm LVPWs: 2.2 cm EDV(Teich): 61.9 ml LVOT diam: 1.9 cm Doppler Measurements & Calculations MV E max nestor: 85.8 cm/sec Ao V2 max: 168.3 cm/sec MV A max nestor: 97.5 cm/sec Ao max P.3 mmHg MV E/A: 0.88 Ao V2 mean: 111.5 cm/sec Ao mean P.6 mmHg Ao V2 VTI: 36.5 cm Med Peak E' Nestor: 6.6 cm/sec Med E/e': 12.9 Lat Peak E' Nestor: 7.1 cm/sec Lat E/e': 12.1 Left Ventricle There is mild concentric left ventricular hypertrophy. Ejection Fraction = 55-60%. The transmitral sp ectral Doppler flow pattern is normal for age. Right Ventricle The right ventricle is not well visualized. Although the right ventricle is not well seen in all view s, overall RV size and function appears grossly normal in the subcostal views. Atria Normal left and right atrial size and function. Mitral Valve The mitral valve is normal in structure and function. There is no mitral valve stenosis. There is tra ce mitral regurgitation. Tricuspid Valve The tricuspid valve is not well visualized, but is grossly normal. There is mild tricuspid regurgitat ion. Aortic Valve The aortic valve opens well. No hemodynamically significant valvular aortic stenosis. No aortic regur gitation is present. Pulmonic Valve The pulmonic valve is not well seen, but is grossly normal. There is no pulmonic valvular stenosis. M ild pulmonic valvular regurgitation. Great Vessels The aortic root is normal size. Pericardium/Pleura There is no pericardial effusion. Interpretation Summary Ejection Fraction = 55-60%. There is mild concentric left ventricular hypertrophy. The right ventricle is not well visualized. Although the right ventricle is not well seen in all views, overall RV size and function appears brianne sly normal in the subcostal views. There is mild tricuspid regurgitation. Mild pulmonic valvular regurgitation. There is no pericardial effusion. MD Oropeza *Dustin 03/04/2019 11:09 AM
--- NOTE | 2019-03-04 11:30 | DS ---
Physical Exam: SUBJECTIVE: Patient seen and examined OBJECTIVE: Vital Signs Period Temp Pulse Resp BP Sys/Medel Pulse Ox Last 24 Hr 97.9 F-98.4 F 74-88 18-20 139-153/94-100 98-98 PHYSICAL EXAM GENERAL: The patient is awake, alert, and fully oriented, in no acute distress. HEAD: Normal with no signs of trauma. EYES: PERRL, extraocular movements intact, sclera anicteric, conjunctiva clear. ENT: Ears normal, nares patent, oropharynx clear without exudates, moist mucous membranes. NECK: Trachea midline, full range of motion, supple. LUNGS: Breath sounds equal, clear to auscultation bilaterally, no wheezes, no crackles, no accessory muscle use. HEART: Regular rate and rhythm, S1, S2 without murmur, rub or gallop. ABDOMEN: Soft, nontender, nondistended, normoactive bowel sounds, no guarding, no rebound, no hepatosplenomegaly, no masses. EXTREMITIES: 2+ pulses, warm, well-perfused, no edema. NEUROLOGICAL: Cranial nerves II through XII grossly intact. Normal speech, gait not observed. PSYCH: Normal mood, normal affect. SKIN: Warm, dry, normal turgor, no rashes or lesions noted. LABS Laboratory Results - last 24 hr 03/03/19 03/03/19 03/03/19 20:56 20:56 20:56 WBC 7.5 RBC 4.50 Hgb 11.6 Hct 35.3 MCV 78.4 L MCH 25.7 MCHC 32.8 RDW 15.3 Plt Count 367 MPV 7.7 Absolute Neuts (auto) 5.8 Neutrophils % 76.8 Lymphocytes % 14.1 Monocytes % 5.5 Eosinophils % 3.1 Basophils % 0.5 Nucleated RBC % 0 PT with INR 11.30 INR 0.96 PTT (Actin FS) 28.0 D-Dimer 1380 H Sodium Potassium Chloride Carbon Dioxide Anion Gap BUN Creatinine Est GFR (CKD-EPI)AfAm Est GFR (CKD-EPI)NonAf Random Glucose Calcium Total Bilirubin AST ALT Alkaline Phosphatase Total Protein Albumin TSH Serum , Qual 03/03/19 03/03/19 03/03/19 20:56 20:56 21:38 WBC RBC Hgb Hct MCV MCH MCHC RDW Plt Count MPV Absolute Neuts (auto) Neutrophils % Lymphocytes % Monocytes % Eosinophils % Basophils % Nucleated RBC % PT with INR INR PTT (Actin FS) D-Dimer Sodium 139 Potassium 3.8 Chloride 107 Carbon Dioxide 25 Anion Gap 7 L BUN 15 Creatinine 0.9 Est GFR (CKD-EPI)AfAm 87.63 Est GFR (CKD-EPI)NonAf 75.61 Random Glucose 99 Calcium 9.5 Total Bilirubin 0.3 AST 14 L ALT 17 Alkaline Phosphatase 81 Total Protein 6.9 Albumin 3.9 TSH 1.19 Serum , Qual Negative 03/04/19 03/04/19 03/04/19 05:20 05:20 05:20 WBC 7.6 RBC 4.45 Hgb 11.4 Hct 34.8 MCV 78.1 L MCH 25.6 L MCHC 32.7 RDW 15.4 Plt Count 384 MPV 7.6 Absolute Neuts (auto) 5.3 Neutrophils % 69.4 Lymphocytes % 18.9 D Monocytes % 7.2 Eosinophils % 4.0 Basophils % 0.5 Nucleated RBC % 0 PT with INR 13.00 INR 1.10 H PTT (Actin FS) 34.9 D-Dimer Sodium 140 Potassium 4.1 Chloride 108 H Carbon Dioxide 27 Anion Gap 5 L BUN 12 Creatinine 1.0 Est GFR (CKD-EPI)AfAm 77.15 Est GFR (CKD-EPI)NonAf 66.57 Random Glucose 96 Calcium 9.2 Total Bilirubin 0.5 AST 14 L ALT 16 Alkaline Phosphatase 68 Total Protein 7.0 Albumin 3.8 TSH Serum , Qual HOSPITAL COURSE: Date of Admission:03/03/19 Date of Discharge: 03/04/19 Discharge Summary Reason For Visit: PULMONARY EMBOLISM Current Active Problems Pulmonary embolism (Acute) Condition: Improved - Instructions Diet, Activity, Other Instructions: You came in for shortness of breath. We imaged your chest and found that you have some clots in your lungs. You echocardiogram (ultrasound of your heart) was normal and did not show any strain. We are starting you on a new medication Eliquis. You can continue on the rest of your home medications as well. Please take Eliquis 10mg TWICE a day for 6 more days (You received your AM dose in the hospital, please remember to take your PM dose after discharge) Please start taking Eliquis 5 mg TWICE a day from 03/11/19 --Eliquis can increase your risk of bleeding so please check your skin, gums , urine and stool every day for bleeding and bruising. Please return to the ED if you are experiencing worsening headache, signs of unstoppable bleeding, chest pain, worsening shortness of breath or any concerning symptoms. Referrals: Surya Lopez MD [Primary Care Provider] - 1 Week Kush Jensen MD [Non Staff, Medical] - 1 Week (Hypercoaguable workup for unprovoked PE) Disposition: HOME - Home Medications Comprehensive Discharge Medication List: Ambulatory Orders Losartan Potassium [Cozaar -] 100 mg PO DAILY 05/28/18 Apixaban [Eliquis -] 5 mg PO BID #60 tablet 03/04/19 Apixaban [Eliquis -] 10 mg PO BID #24 tablet 03/04/19 Omeprazole 20 mg PO DAILY 03/04/19
[2019-03-04 11:52] VITALS: BP 135/92; PULSE 76; TEMP 98.3
--- NOTE | 2019-03-04 14:21 | CONSULT ---
Consultation: REQUESTING PROVIDER: CONSULT REQUEST: We have been asked to medically evaluate this patient for ( specify). HISTORY OF PRESENT ILLNESS: REVIEW OF SYSTEMS: CONSTITUTIONAL: Absent: fever, chills, diaphoresis, generalized weakness, malaise, loss of appetite, weight change HEENT: Absent: rhinorrhea, nasal congestion, throat pain, throat swelling, difficulty swallowing, mouth swelling, ear pain, eye pain, visual changes CARDIOVASCULAR: Absent: chest pain, syncope, palpitations, irregular heart rate, lightheadedness , peripheral edema RESPIRATORY: Absent: cough, shortness of breath, dyspnea with exertion, orthopnea, wheezing, stridor, hemoptysis GASTROINTESTINAL: Absent: abdominal pain, abdominal distension, nausea, vomiting, diarrhea, constipation, melena, hematochezia GENITOURINARY: Absent: dysuria, frequency, urgency, hesitancy, hematuria, flank pain, genital pain MUSCULOSKELETAL: Absent: myalgia, arthralgia, joint swelling, back pain, neck pain SKIN: Absent: rash, itching, pallor HEMATOLOGIC/IMMUNOLOGIC: Absent: easy bleeding, easy bruising, lymphadenopathy, frequent infections ENDOCRINE: Absent: unexplained weight gain, unexplained weight loss, heat intolerance, cold intolerance NEUROLOGIC: Absent: headache, focal weakness or paresthesias, dizziness, unsteady gait, seizure, mental status changes, bladder or bowel incontinence PSYCHIATRIC: Absent: anxiety, depression, suicidal or homicidal ideation, hallucinations. PHYSICAL EXAMINATION Vital Signs - 24 hr 03/03/19 03/04/19 03/04/19 19:25 06:05 07:45 Temperature 97.9 F 98.4 F Pulse Rate 88 Pulse Rate [ 74 Left] Respiratory 20 18 Rate Blood Pressure 153/100 Blood Pressure 139/94 [Left] O2 Sat by Pulse 98 98 98 Oximetry (%) 03/04/19 11:50 Temperature 98.3 F Pulse Rate Pulse Rate [ 76 Left] Respiratory 18 Rate Blood Pressure Blood Pressure 135/92 [Left] O2 Sat by Pulse 97 Oximetry (%) GENERAL: Awake, alert, and fully oriented, in no acute distress. HEAD: Normal with no signs of trauma. EYES: Pupils equal, round and reactive to light, extraocular movements intact, sclera anicteric, conjunctiva clear. No lid lag. EARS, NOSE, THROAT: Ears normal, nares patent, oropharynx clear without exudates. Moist mucous membranes. NECK: Normal range of motion, supple without lymphadenopathy, JVD, or masses. LUNGS: Breath sounds equal, clear to auscultation bilaterally. No wheezes, and no crackles. No accessory muscle use. HEART: Regular rate and rhythm, normal S1 and S2 without murmur, rub or gallop. ABDOMEN: Soft, nontender, not distended, normoactive bowel sounds, no guarding, no rebound, no masses. No hepatomegaly or splenomegaly. MUSCULOSKELETAL: Normal range of motion at all joints. No bony deformities or tenderness. No CVA tenderness. UPPER EXTREMITIES: 2+ pulses, warm, well-perfused. No cyanosis. No clubbing. Cap refill <2 seconds. No peripheral edema. LOWER EXTREMITIES: 2+ pulses, warm, well-perfused. No calf tenderness. No peripheral edema. NEUROLOGICAL: Cranial nerves II-XII intact. Normal speech. Normal gait. PSYCHIATRIC: Cooperative. Good eye contact. Appropriate mood and affect. SKIN: Warm, dry, normal turgor, no rashes or lesions noted. Laboratory Results - last 24 hr 03/03/19 03/03/19 03/03/19 20:56 20:56 20:56 WBC 7.5 RBC 4.50 Hgb 11.6 Hct 35.3 MCV 78.4 L MCH 25.7 MCHC 32.8 RDW 15.3 Plt Count 367 MPV 7.7 Absolute Neuts (auto) 5.8 Neutrophils % 76.8 Lymphocytes % 14.1 Monocytes % 5.5 Eosinophils % 3.1 Basophils % 0.5 Nucleated RBC % 0 PT with INR 11.30 INR 0.96 PTT (Actin FS) 28.0 D-Dimer 1380 H Sodium Potassium Chloride Carbon Dioxide Anion Gap BUN Creatinine Est GFR (CKD-EPI)AfAm Est GFR (CKD-EPI)NonAf Random Glucose Calcium Total Bilirubin AST ALT Alkaline Phosphatase Total Protein Albumin TSH Serum , Qual 03/03/19 03/03/19 03/03/19 20:56 20:56 21:38 WBC RBC Hgb Hct MCV MCH MCHC RDW Plt Count MPV Absolute Neuts (auto) Neutrophils % Lymphocytes % Monocytes % Eosinophils % Basophils % Nucleated RBC % PT with INR INR PTT (Actin FS) D-Dimer Sodium 139 Potassium 3.8 Chloride 107 Carbon Dioxide 25 Anion Gap 7 L BUN 15 Creatinine 0.9 Est GFR (CKD-EPI)AfAm 87.63 Est GFR (CKD-EPI)NonAf 75.61 Random Glucose 99 Calcium 9.5 Total Bilirubin 0.3 AST 14 L ALT 17 Alkaline Phosphatase 81 Total Protein 6.9 Albumin 3.9 TSH 1.19 Serum , Qual Negative 03/04/19 03/04/19 03/04/19 05:20 05:20 05:20 WBC 7.6 RBC 4.45 Hgb 11.4 Hct 34.8 MCV 78.1 L MCH 25.6 L MCHC 32.7 RDW 15.4 Plt Count 384 MPV 7.6 Absolute Neuts (auto) 5.3 Neutrophils % 69.4 Lymphocytes % 18.9 D Monocytes % 7.2 Eosinophils % 4.0 Basophils % 0.5 Nucleated RBC % 0 PT with INR 13.00 INR 1.10 H PTT (Actin FS) 34.9 D-Dimer Sodium 140 Potassium 4.1 Chloride 108 H Carbon Dioxide 27 Anion Gap 5 L BUN 12 Creatinine 1.0 Est GFR (CKD-EPI)AfAm 77.15 Est GFR (CKD-EPI)NonAf 66.57 Random Glucose 96 Calcium 9.2 Total Bilirubin 0.5 AST 14 L ALT 16 Alkaline Phosphatase 68 Total Protein 7.0 Albumin 3.8 TSH Serum , Qual Active Medications Generic Name Dose Route Start Last Admin Trade Name Freq PRN Reason Stop Dose Admin Apixaban 10 mg 03/04/19 10:00 03/04/19 10:03 Eliquis - PO 10 mg BID DAVID Administration Losartan Potassium 100 mg 03/04/19 10:00 03/04/19 10:03 Cozaar - PO 100 mg DAILY ADVID Administration Pantoprazole Sodium 20 mg 03/04/19 10:00 03/04/19 10:03 Protonix - PO 20 mg DAILY DAVID Administration ASSESSMENT/PLAN: Dispo: We will continue to follow the patient. Thank you for this consultative opportunity.
--- NOTE | 2019-03-04 14:54 | EKG ---
Test Reason : Blood Pressure : / mmHG Vent. Rate : 065 BPM Atrial Rate : 065 BPM P-R Int : 208 ms QRS Dur : 086 ms QT Int : 408 ms P-R-T Axes : 046 -05 -03 degrees QTc Int : 424 ms NORMAL SINUS RHYTHM NORMAL ECG WHEN COMPARED WITH ECG OF 25-JAN-2019 20:58, NO SIGNIFICANT CHANGE WAS FOUND Confirmed by JG MERCEDES MD ([id number]) on 03/04/2019 2:54:27 PM Referred By: Confirmed By:JG MERCEDES MD
--- NOTE | 2019-03-04 15:02 | PN ---
Teaching Attending Note Name of Resident: Roberto Carlos Meyers ATTENDING PHYSICIAN STATEMENT I saw and evaluated the patient. I reviewed the resident's note and discussed the case with the resident. I agree with the resident's findings and plan as documented. SUBJECTIVE: Feels well - no further SOB. No hemoptysis. No chest pain/ palpitations/ No fever/chills. OBJECTIVE: Afebrile, Hemodynamically Stable Last Vital Signs Temp Pulse Resp BP Pulse Ox 98.3 F 76 18 135/92 97 03/04/19 11:50 03/04/19 11:50 03/04/19 11:50 03/04/19 11:50 03/04/19 11:50 HEENT - Atraumatic, Normocephalic. Heart - S1, S2, RRR Lungs - clear to auscultation Abdomen- High BMI, Soft, non-tender. Bowel Sounds normal. Extremities - no calf tenderness. Laboratory Results - last 24 hr 03/03/19 03/03/19 03/03/19 20:56 20:56 20:56 WBC 7.5 RBC 4.50 Hgb 11.6 Hct 35.3 MCV 78.4 L MCH 25.7 MCHC 32.8 RDW 15.3 Plt Count 367 MPV 7.7 Absolute Neuts (auto) 5.8 Neutrophils % 76.8 Lymphocytes % 14.1 Monocytes % 5.5 Eosinophils % 3.1 Basophils % 0.5 Nucleated RBC % 0 PT with INR 11.30 INR 0.96 PTT (Actin FS) 28.0 D-Dimer 1380 H Sodium Potassium Chloride Carbon Dioxide Anion Gap BUN Creatinine Est GFR (CKD-EPI)AfAm Est GFR (CKD-EPI)NonAf Random Glucose Calcium Total Bilirubin AST ALT Alkaline Phosphatase Total Protein Albumin TSH Serum , Qual 03/03/19 03/03/19 03/03/19 20:56 20:56 21:38 WBC RBC Hgb Hct MCV MCH MCHC RDW Plt Count MPV Absolute Neuts (auto) Neutrophils % Lymphocytes % Monocytes % Eosinophils % Basophils % Nucleated RBC % PT with INR INR PTT (Actin FS) D-Dimer Sodium 139 Potassium 3.8 Chloride 107 Carbon Dioxide 25 Anion Gap 7 L BUN 15 Creatinine 0.9 Est GFR (CKD-EPI)AfAm 87.63 Est GFR (CKD-EPI)NonAf 75.61 Random Glucose 99 Calcium 9.5 Total Bilirubin 0.3 AST 14 L ALT 17 Alkaline Phosphatase 81 Total Protein 6.9 Albumin 3.9 TSH 1.19 Serum , Qual Negative 03/04/19 03/04/19 03/04/19 05:20 05:20 05:20 WBC 7.6 RBC 4.45 Hgb 11.4 Hct 34.8 MCV 78.1 L MCH 25.6 L MCHC 32.7 RDW 15.4 Plt Count 384 MPV 7.6 Absolute Neuts (auto) 5.3 Neutrophils % 69.4 Lymphocytes % 18.9 D Monocytes % 7.2 Eosinophils % 4.0 Basophils % 0.5 Nucleated RBC % 0 PT with INR 13.00 INR 1.10 H PTT (Actin FS) 34.9 D-Dimer Sodium 140 Potassium 4.1 Chloride 108 H Carbon Dioxide 27 Anion Gap 5 L BUN 12 Creatinine 1.0 Est GFR (CKD-EPI)AfAm 77.15 Est GFR (CKD-EPI)NonAf 66.57 Random Glucose 96 Calcium 9.2 Total Bilirubin 0.5 AST 14 L ALT 16 Alkaline Phosphatase 68 Total Protein 7.0 Albumin 3.8 TSH Serum , Qual Current Medications Generic Name Dose Route Start Last Admin Trade Name Freq PRN Reason Stop Dose Admin Apixaban 10 mg 03/04/19 10:00 03/04/19 10:03 Eliquis - PO 10 mg BID DAVID Administration Losartan Potassium 100 mg 03/04/19 10:00 03/04/19 10:03 Cozaar - PO 100 mg DAILY DAVID Administration Pantoprazole Sodium 20 mg 03/04/19 10:00 03/04/19 10:03 Protonix - PO 20 mg DAILY DAVID Administration ASSESSMENT/PLAN 48 year old female with history of HTN, GERD, presents with acute onset SOB, found to have PE. No precipitating factors. 1. Acute Pulmonary Emboli DIMER 1380 CT: multiple small emboli on RLL and tiny in LLL Stable cardiopulmonary status - SpO2 98% RA, RR 18, BP 135/92 Echo - normal, no RV stain. Started on Eliquis 10mg BID for one week and then 5mg BID 2. HTN - Continue Losartan. Recent negative Stress test. 3. GERD - continue Omeprazole. Hemodynamically Stable for discharge pn Eliquis, with Cardiology and Hematology follow ups.
== END 2019-03-04 11:50 | disposition home or self-care (01) ==
LOC: JER 19:08 → JERBED 23:49 → INTOOBSV 23:49
PROVIDERS: ADMIT Internal Medicine
DX: I26.99 Other pulmonary embolism without acute cor pulmonale (principal); E66.9 Obesity, unspecified; Z68.38 Body mass index [BMI] 38.0-38.9, adult; I10 Essential (primary) hypertension; K21.9 Gastro-esophageal reflux disease without esophagitis; E07.9 Disorder of thyroid, unspecified
CPT/HCPCS: 36415; 71275-TC; 80053; 81240; 81241; 84443; 84703; 85025; 85300; 85302; 85305; 85306; 85379; 85610; 85613; 85730; 85732; 93005; 93010; 93306-TC; 99283-25; G0378

== ENCOUNTER 2019-03-08 11:47 | Emergency (ER) | payer OTHER | END 2019-03-08 18:16 | disposition home or self-care (01) | LOC: JER 11:47 ==

== ENCOUNTER 2019-04-14 02:17 | Emergency (ER) | payer OTHER ==
[2019-04-14 02:52] VITALS: TEMP 98.1; BMI 37.2
--- NOTE | 2019-04-14 02:59 | PDOC ---
History of Present Illness - General Chief Complaint: Tachycardia Stated Complaint: RAPID HEART BEAT - History of Present Illness Initial Comments: The pt is a 48F w/ a history of HTN and GERD, recent diagnosis of bilateral PE on 03/03/19 on eliquis who presents for evaluation of 'feeling my heart beat' since 2100 last night (6 hours). Pt denies chest pain, SOB, ERVIN, vision changes, lightheadedness, N/V/C/D, dysuria, hematuria, or changes in sensation. She reports having similar symptoms previously that would spontaneously resolve. She endorses increased stress in her life recently but cannot identify any particular/single event stressors. 04/14/19 02:58 Past History - Past Medical History Allergies/Adverse Reactions: Allergies Allergy/AdvReac Type Severity Reaction Status Date / Time No Known Allergies Allergy Verified 03/08/19 11:52 Home Medications: Ambulatory Orders Losartan Potassium [Cozaar -] 100 mg PO DAILY 05/28/18 Omeprazole 40 mg PO DAILY 03/04/19 Apixaban [Eliquis -] 5 mg PO BID 04/14/19 Sucralfate [Carafate -] 1 gm PO DAILY 04/14/19 COPD: No GI Disorders: Yes (GERD) HTN: Yes - Immunization History Td Vaccination: Yes TDAP Vaccination: Yes Immunization Up to Date: No - Suicide/Smoking/Psychosocial Hx Smoking History: Never smoked Have you smoked in the past 12 months: No Hx Alcohol Use: No Drug/Substance Use Hx: No Substance Use Type: None Review of Systems - Review of Systems Able to Perform ROS?: Yes Comments:: GENERAL/CONSTITUTIONAL: No fever or chills. No weakness HEAD, EYES, EARS, NOSE AND THROAT: No change in vision. No ear pain or discharge. No sore throat CARDIOVASCULAR: No chest pain or shortness of breath RESPIRATORY: Denies cough, hemoptysis GASTROINTESTINAL: No nausea, vomiting, diarrhea or constipation GENITOURINARY: No dysuria, frequency, or change in urination MUSCULOSKELETAL: No joint or muscle swelling or pain. No neck or back pain SKIN: No rash NEUROLOGIC: No headache, vertigo, loss of consciousness, or change in strength/ sensation ENDOCRINE: No increased thirst. No abnormal weight change HEMATOLOGIC/LYMPHATIC: No anemia, easy bleeding, or history of blood clots ALLERGIC/IMMUNOLOGIC: No hives or skin allergy 04/14/19 03:02 Is the patient limited Latvian proficient: No *Physical Exam - Vital Signs Last Vital Signs Temp Pulse Resp BP Pulse Ox 98.1 F 85 18 139/87 98 04/14/19 02:48 04/14/19 02:48 04/14/19 02:48 04/14/19 02:48 04/14/19 02:48 - Physical Exam Comments: GENERAL: Awake, alert, and oriented to person/place/time, in no acute distress HEAD: No signs of trauma, normocephalic, atraumatic EYES: PERRLA, EOMI, sclera anicteric, conjunctiva clear ENT: Hearing grossly normal, nares patent, oropharynx clear without exudates. Moist mucosa LUNGS: No distress, speaks full sentences, clear to auscultation bilaterally HEART: Regular rate and rhythm, normal S1 and S2, no murmurs appreciated, peripheral pulses normal and equal bilaterally ABDOMEN: Soft, nontender, normoactive bowel sounds. No guarding, no rebound EXTREMITIES: Normal inspection, Normal range of motion, no edema. No clubbing or cyanosis NEUROLOGICAL: Cranial nerves II through XII grossly intact. Normal speech, no focal sensorimotor deficits SKIN: Warm, Dry 04/14/19 03:02 Heart Score/ECG Review - History History: Slightly suspicious - Electrocardiogram EKG: Normal - Age Age: 45-65 - Risk Factors Risk Factors Heart Score: Yes Hx Hypertension, Yes Hx Obesity Based on the list above the patient has:: 1-2 risk factors - Troponin Troponin: </= normal limit - Score Heart Score - Total: 2 ED Treatment Course - LABORATORY CBC & Chemistry Diagram: 04/14/19 03:45 04/14/19 03:45 Medical Decision Making - Medical Decision Making The pt is a 48F w/ a history of HTN, GERD, PE (eliquis) who presents for evaluation 'feeling my heart beat'. ED Course CMP, CBC, Trop I ECG CXR 04/14/19 03:58 ECG w/ NSR; left axis deviation; HR 82; QTc 441; no evidence of acute ischemia Heart Score 2 Recent ECHO in 02/2019 w/ EF 55-60% 04/14/19 04:00 Lytes unremarkable Anemia at baseline Trop I neg CXR w/o evidence of PNA, PNX Plan for D/C w/ PCP and Cardiology Discharge instructions and return precautions given Pt in agreement and verbalized understanding Dispo: home 04/14/19 04:55 *DC/Admit/Observation/Transfer Diagnosis at time of Disposition: Palpitations - Discharge Dispostion Disposition: HOME Condition at time of disposition: Stable Decision to Admit order: No - Referrals Referrals: Surya Lopez MD [Primary Care Provider] - Brien Renteria MD [Staff Physician] - Ti Haynes MD [Staff Physician] - - Patient Instructions Printed Discharge Instructions: DI for Anxiety -- Adult, DI for Palpitations Additional Instructions: You were seen in the Emergency Department for evaluation of being able to feel your heart beat. Your labs were unremarkable and your xray was negative for acute pathology. Review the handout provided at discharge. Follow up with your primary care provider and Cardiology (referrals given). Return to the Emergency Department if you develop fevers/chills, chest pain, trouble breathing, dizziness, worsening symptoms, or any new/concerning symptoms. - Post Discharge Activity
--- NOTE | 2019-04-14 03:03 | PDOC ---
Attending Attestation - Resident Resident Name: Henrik Jasso - ED Attending Attestation I have performed the following: I have examined & evaluated the patient, The case was reviewed & discussed with the resident, I agree w/resident's findings & plan - HPI HPI: 04/14/19 04:24 48-year-old female with awareness of her heartbeat. Patient admits that she's not been sleeping well and may have anxiety. There is no associated chest pain back pain shortness of breath nausea or vomiting. - Physicial Exam PE: 04/14/19 04:28 agree with rest's exam - Medical Decision Making 04/14/19 04:28 48-year-old female with awareness of her heart beating and anxiety Plan for labs EKG and chest x-ray Will likely discharge home with recommended outpatient cardiology follow-up for baseline testing
[2019-04-14 04:12] LABS: BASO % 0.4 % (0-2.0); EOS % 2.1 % (0-4.5); HEMATOCRIT 30.3 % (32.4-45.2); HEMOGLOBIN 9.9 GM/dL (10.7-15.3); LYMPH % 15.2 % (8-40); MCH 25.9 pg (25.7-33.7); MCHC 32.8 g/dl (32.0-36.0); MEAN CELL VOLUME 78.9 fl (80-96); MEAN PLT VOLUME 7.4 fl (7.5-11.1); MONO % 6.5 % (3.8-10.2); NEUT % 75.8 % (42.8-82.8); PLATELET COUNT 404 K/MM3 (134-434); RBC 3.84 M/mm3 (3.60-5.2); RDW 15.6 % (11.6-15.6); WHITE BLOOD COUNT 7.2 K/mm3 (4.0-10.0)
[2019-04-14 04:43] LABS: ALBUMIN 3.9 g/dl (3.4-5.0); ALK PHOS 77 U/L (45-117); ANION GAP 5 MMOL/L (8-16); BILIRUBIN,TOTAL 0.2 mg/dL (0.2-1); BLOOD UREA NITROGEN 13.5 mg/dL (7-18); CALCIUM 9.2 mg/dL (8.5-10.1); CHLORIDE 108 mmol/L (98-107); CO2 27 mmol/L (21-32); GLUCOSE,RANDOM 100 mg/dL (74-106); SGOT/AST 13 U/L (15-37); SGPT/ALT 18 U/L (13-61); SODIUM 140 mmol/L (136-145); TOT PROT 6.9 g/dl (6.4-8.2)
[2019-04-14 05:19] VITALS: BP 133/83; PULSE 82
--- NOTE | 2019-04-14 12:30 | EKG ---
Test Reason : Blood Pressure : / mmHG Vent. Rate : 082 BPM Atrial Rate : 082 BPM P-R Int : 194 ms QRS Dur : 084 ms QT Int : 378 ms P-R-T Axes : 020 -13 -01 degrees QTc Int : 441 ms NORMAL SINUS RHYTHM MINIMAL VOLTAGE CRITERIA FOR LVH, MAY BE NORMAL VARIANT BORDERLINE ECG WHEN COMPARED WITH ECG OF 08-MAR-2019 11:54, NO SIGNIFICANT CHANGE WAS FOUND Confirmed by ZULEMA PFEIFFER, ÁNGEL ([id number]) on 04/14/2019 12:29:53 PM Referred By: Confirmed By:ÁNGEL POOLE MD
== END 2019-04-14 05:15 | disposition home or self-care (01) ==
LOC: JER 02:17
DX: R00.2 Palpitations (principal); I10 Essential (primary) hypertension; K21.9 Gastro-esophageal reflux disease without esophagitis; F41.9 Anxiety disorder, unspecified; Z86.711 Personal history of pulmonary embolism; Z79.01 Long term (current) use of anticoagulants
CPT/HCPCS: 36415; 71045-TC-FY; 80053; 84484; 85025; 93005; 93010; 99283-25

== ENCOUNTER 2025-06-09 13:30 | Day surgery (SDC) | payer BC ==
[2025-06-09] MEDS: FERRIC CARBOXYMALTOSE 750 MG in SODIUM CHLORIDE 250 ML IVPB ONE (14:01)
[2025-06-09 14:19] VITALS: RESP 20; TEMP 98
[2025-06-09 15:07] VITALS: BP 125/77; PULSE 68
== END 2025-06-09 15:10 | disposition home or self-care (01) ==
LOC: JONCNONCHE 13:30 → J7W 13:59 → JONCNONCHE 15:10
PROVIDERS: ATTEND Internal Medicine Hematology & Oncology
PROC: 3E033GC Introduction of Other Therapeutic Substance into Peripheral Vein, Percutaneous Approach (ICD-10-PCS; principal; 2025-06-09)
DX: D50.0 Iron deficiency anemia secondary to blood loss (chronic) (principal)
CPT/HCPCS: J1439

== ENCOUNTER 2025-06-16 14:25 | Day surgery (SDC) | payer BC ==
[2025-06-16] MEDS: FERRIC CARBOXYMALTOSE 750 MG in SODIUM CHLORIDE 250 ML IVPB ONE (15:05)
[2025-06-16 16:11] VITALS: BP 112/65; PULSE 82; RESP 18; TEMP 98.5
== END 2025-06-16 16:10 | disposition home or self-care (01) ==
LOC: J7W 14:25 → JONCCHEMO 14:25
PROVIDERS: ATTEND Internal Medicine Hematology & Oncology
PROC: 3E033GC Introduction of Other Therapeutic Substance into Peripheral Vein, Percutaneous Approach (ICD-10-PCS; principal; 2025-06-16)
DX: D50.9 Iron deficiency anemia, unspecified (principal)
CPT/HCPCS: 96365; J1439